=== PATIENT | male | born 1965 | race African-American/Black ===

== ENCOUNTER 2017-03-24 16:03 | Emergency (ER) | payer OTHER ==
[~2017-03-24] VITALS: Ht 167.6 cm; Wt 99.8 kg
[~2017-03-24 16:03] MED LIST: AUGMENTIN 875-1 EACH PO; FLEXERIL PO; IBUPROFEN 800800 M1 PO
[2017-03-24 16:54] VITALS: BP 191/95
== END 2017-03-24 16:54 | disposition home or self-care (01) ==
LOC: M.ERS 16:03
DX: S01.81XD Laceration without foreign body of other part of head, subsequent encounter (principal); W54.0XXD Bitten by dog, subsequent encounter

== ENCOUNTER 2018-04-24 19:18 | Emergency (ER) | payer OTHER ==
[~2018-04-24] VITALS: Ht 167.6 cm; Wt 90.7 kg
[2018-04-24] MEDS ORDERED: ASPIR 8181 MG PO (19:30)
[2018-04-24] MEDS ORDERED: PREDNISONE 20 M20 M1 PO (19:42)
[2018-04-24] MEDS ORDERED: VENTOLIN HFA 1818 GM INH (19:42)
[2018-04-24] MEDS ORDERED: ZPAK PO (19:42)
[2018-04-24 20:02] VITALS: BP 190/115
== END 2018-04-24 20:02 | disposition home or self-care (01) ==
LOC: M.ERS 19:18
DX: J40 Bronchitis, not specified as acute or chronic (principal)